=== PATIENT | female | born 1980 | race Caucasian/White ===

== ENCOUNTER → 2020-07-21 14:15 | Outpatient (CLI) | payer OTHER, SELFPAY ==
[2020-07-21 15:16] LABS: COVID19 -Nasal RAPID Negative (Negative)
== END ==
PROVIDERS: Visit Provider Nurse Practitioner Family
DX: Z20.822 Contact with and (suspected) exposure to COVID-19 (principal)
CPT/HCPCS: 87635; C9803

== ENCOUNTER 2023-07-22 12:50 | Day surgery (SDC) | payer OTHER, SELFPAY ==
--- NOTE | 2023-07-22 | PATH_ITS ---
[facility] Accession Number: [id number] No. of containers..02 Tissue . 01 Material submitted: . PART A: colon - ASCENDING POLYP PART B: colon - SIGMOID POLYP . 01 Diagnosis: A. Ascending Colon Polyp, Biopsy: Tubular adenoma. . B. Sigmoid Colon Polyp, Biopsy: Tubular adenoma. MRV 07/24/2023 1705 Local . 01 Electronically signed: . Wanda Roe MD, Pathologist NPI- [id number] . 01 Gross description: . Part A: ASCENDING POLYP: Received in formalin is 1 fragment(s) of alberto, soft tissue measuring 0.3 x 0.3 x 0.2 cm submitted entirely in 1 cassette(s) Part B: SIGMOID POLYP: Received in formalin is 1 fragment(s) of alberto, soft tissue measuring 0.3 x 0.3 x 0.2 cm submitted entirely in 1 cassette(s) /JAYLEEN 07/23/20232026 Local . 01 Pathologist provided ICD-10: D12.2, D12.5 . 01 CPT . 155017, 414838 Specimen Comment: A courtesy copy of this report has been sent to [phone] Performed at: 01 [facility] [address] [place] [address] [address], [place], [place] [id number] MD Donavan Dexter MD Phone: [phone]
[2023-07-22] MEDS: LACTATED RINGERS 1,000 ML 100 ML IV (13:36)
[2023-07-22 13:37] VITALS: BP 118/74; PULSE 79; RESP 16; TEMP 36.4; O2SAT 100
--- NOTE | 2023-07-22 13:51 | PM.HP.1 ---
History of Present Illness History of Present Illness Date Patient Seen: 07/22/23 Time Patient Seen: 13:51 Chief complaint: Screening Colonoscopy Narrative: 43-year-old woman here for screening colonoscopy. Mother has a history of breast cancer and patient has a positive CHEK2 gene mutation. No particular abdominal concerns today. [facility] Social History Smoking Status: Never smoker alcohol intake: never Meds Home Medications and Allergies Home Medications Medication Instructions Recorded Confirmed Type bupropion HCl 100 mg tablet 100 mg PO BID 07/22/23 07/22/23 History cetirizine 10 mg tablet 10 mg PO DAILY 07/22/23 07/22/23 History montelukast 10 mg tablet 10 mg PO DAILY 07/22/23 07/22/23 History sertraline 100 mg tablet 100 mg PO DAILY 07/22/23 07/22/23 History Allergies Allergy/AdvReac Type Severity Reaction Status Date / Time NSAIDS (Non-Steroidal AdvReac Verified 07/22/23 13:32 Anti-Inflamma Exam Vital Signs (past 8 hours): - 07/22/23 13:37 Temperature 97.5 F L Pulse Rate 79 Respiratory Rate 16 Blood Pressure 118/74 Pulse Oximetry 100 Oxygen Delivery Method Room Air Oxygen Delivery Method Room Air Narrative Exam Narrative: General adult woman alert oriented no acute distress Chest nonlabored respiration Extremities warm well perfused Assessment & Plan Assessment & Plan narrative: The patient requires colorectal screening and colonoscopy is recommended. Technical details were discussed. Risks, benefits, alternatives explained. Risks including but not limited to myocardial infarction, aspiration, bleeding, pain, missed lesion, incomplete examination, need for further radiographic studies, colonic perforation, and need for major abdominal surgery were discussed. All questions were answered to their satisfaction, and they are in agreement with this plan.
[2023-07-22 14:20] VITALS: BP 96/58; PULSE 85; RESP 20; TEMP 37; O2SAT 98
[2023-07-22 14:25] VITALS: BP 100/61; PULSE 83; O2SAT 99
--- NOTE | 2023-07-22 14:25 | P.OP.COLON_ITS ---
Operative Date/Time/Diagnoses Date of procedure: 07/22/23 Time of procedure: 14:26 Pre-op diagnosis: CHEK2 gene mutation Procedure & Clinicians Study performed: Colonoscopy and polypectomy Same procedure as scheduled: Yes Indications: Colorectal screening CHEK2 gene mutation Surgeon: Thomas Chavez Procedure Notes Procedure in detail: The history and physical was performed/updated and the patient is ASA class is 3. The procedure was discussed in detail with the patient. Potential risks complications including infection, bleeding, missed diagnosis, perforation, need for surgery, and were explained. Their questions were answered and informed consent was obtained. Patient was brought to the procedure room and placed standard monitoring equipment. The patient's vital signs were monitored continuously throughout the entire procedure. Prior to starting time-out was performed. The patient was placed in the left lateral recumbent position. Procedural sedation was administered by anesthesia. Examination began with a thorough inspection of the perianal area there was no evidence of fissures, fistulae, external hemorrhoids or cutaneous malignancy. The colonoscopy scope was then placed into the anal canal and was advanced to the cecum, which was identified by the ileocecal valve, the appendiceal orifice and the confluence of the taenia. The scope was then slowly withdrawn examining colon thoroughly in all directions, irrigating it of any residual stool. The scope was retroflexed within the rectum The patient tolerated the procedure well. They will be discharged once criteria are met. The prep was of fair quality. The withdrawl time was 8 minutes. FINDINGS * Ascending colon 3 mm polyp removed with biopsy forceps * Sigmoid 3 mm polyp removed with biopsy forceps Specimen(s): other (Ascending and sigmoid colonic polyps) Impression: Colonic polyps x2 Post-procedure Plan for aftercare: Follow up is dependent on pathology findings Disposition: same day surgery
[2023-07-22 14:30] VITALS: BP 104/63; PULSE 82; RESP 16; O2SAT 100
[2023-07-22 14:37] VITALS: BP 112/72; PULSE 92; RESP 15; TEMP 37; O2SAT 100
[2023-07-22 14:39] VITALS: BP 113/72; PULSE 86; RESP 15; O2SAT 99
== END 2023-07-22 14:51 | disposition home or self-care (01) ==
PROVIDERS: PCP Nurse Practitioner Family; Referring Provider Surgery; Visit Provider Surgery
PROC: 0DJD8ZZ Inspection of Lower Intestinal Tract, Via Natural or Artificial Opening Endoscopic (ICD-10-PCS; CPT 45378; principal; 2023-07-22 14:15)
DX: Z12.11 Encounter for screening for malignant neoplasm of colon (principal); Z15.09 Genetic susceptibility to other malignant neoplasm; D12.2 Benign neoplasm of ascending colon; D12.5 Benign neoplasm of sigmoid colon
CPT/HCPCS: 45380; J2250; J2704

== ENCOUNTER → 2024-02-12 09:05 | Outpatient (CLI) | payer OTHER, SELFPAY ==
--- NOTE | 2024-02-12 09:06 | DI.MG.S_ITS ---
BILATERAL DIGITAL DIAGNOSTIC MAMMOGRAM 3D/2D: 02/12/2024 CLINICAL: Right breast lump. Comparison is made to exams dated: 08/20/2021 mammogram - [facility], 05/06/2023 mammogram, and 04/11/2022 mammogram - out side. Both breasts are almost entirely fatty (category a/<25% glandular tissue). There is a low density asymmetry with an indistinct margin in the right breast at 6 o'clock anterior depth. This is seen in additional views. There is a trace amount of air and skin thickening associated with the asymmetry. This correlates as palpated and to the area of reported pain. No other significant masses, calcifications, or other findings are seen in either breast. Mammograms are otherwise stable. IMPRESSION: INCOMPLETE: NEEDS ADDITIONAL IMAGING EVALUATION The low density asymmetry in the right breast most likely is a skin lesion but remains indeterminate. An ultrasound is recommended. This was performed immediately following this exam. Bilateral mammograms are otherwise stable. Based on the Tyrer Cuzick model (a risk assessment model) the patient's lifetime risk is 14.7% and her 10 year risk is 2.4%. According to the ACR, ACS, and NCCN guidelines, an annual breast MRI exam along with mammogram is recommended if the patient's lifetime risk is 20% or greater. This exam was interpreted at Station ID: [id number]. NOTE: For mammograms, a report in lay terms will be sent to the patient. Approximately 15% of breast malignancies will not be visualized mammographically. In the management of a palpable breast mass, a negative mammogram must not discourage biopsy of a clinically suspicious lesion. Electronically Signed By: Nahomi islas/:02/12/2024 10:13:01 ACR BI-RADS Category 0: Incomplete [id number]
--- NOTE | 2024-02-12 09:06 | DI.US.S_ITS ---
LIMITED ULTRASOUND OF RIGHT BREAST AND AXILLA: 02/12/2024 CLINICAL: RT BREAST SUPERFICIAL MASS 06:00 4.5CMFN. Comparison is made to exams dated: 02/12/2024 mammogram - [facility], 05/06/2023 mammogram, 04/11/2022 mammogram, 04/11/2022 ultrasound - out side, 08/20/2021 mammogram, and 03/20/2017 mammogram - [facility]. Color flow and real-time ultrasound of the right breast 6 o'clock, and axilla regions were performed. Lawson scale images of the real-time examination were reviewed. There is a 2.3 cm x 2.1 cm x 0.7 cm oval fluid collection within the skin of the right breast at 6 o'clock 5 cm from the nipple. This oval fluid collection is hypoechoic with anti-dependent hyperechoic punctate foci. There is associated skin thickening and a tract to the skin surface. Color flow imaging demonstrates that there is increased vascularity. This correlates as palpated and with mammography findings. IMPRESSION: BENIGN There is no sonographic evidence of malignancy. The 2.3 cm intradermal fluid collection containing air on the right breast is consistent with an infected sebaceous cyst, phlegmon, or granuloma and is benign. Clinical follow up is recommended for symptoms as needed. Return to annual mammogram screening schedule is recommended. Findings and recommendations were conveyed to the patient at time of exam. This exam was interpreted at Station ID: [id number]. Electronically Signed By: Nahomi islas/:02/12/2024 12:06:23 letter sent: Normal Exam Ultrasound BI-RADS: 2 Benign
== END ==
LOC: MAMMO 09:05
PROVIDERS: PCP Nurse Practitioner Family; Referring Provider Nurse Practitioner Family; Visit Provider Nurse Practitioner Family
DX: R92.8 Other abnormal and inconclusive findings on diagnostic imaging of breast (principal); N63.15 Unspecified lump in the right breast, overlapping quadrants; R92.343 Mammographic extreme density, bilateral breasts
CPT/HCPCS: 76642; 77066; G0279

== ENCOUNTER → 2024-04-14 07:06 | Outpatient (CLI) | payer OTHER, SELFPAY ==
--- NOTE | 2024-04-14 | DI.US.S_ITS ---
PROCEDURE: US ABDOMEN LIMITED INDICATIONS: RIGHT UPPER QUADRANT AND EPIGASTRIC PAIN TECHNIQUE: Real-time scanning was performed of the abdominal and retroperitoneal organs, with image documentation. COMPARISON: None. FINDINGS: Liver: Liver is enlarged measuring 22.4 centimeters and increased in echogenicity. Gallbladder: Gallbladder sludge versus small dependent stones. No wall thickening. No pericholecystic edema. Negative sonographic Kearney's sign. Biliary ducts: Intrahepatic bile ducts are non-dilated. Extrahepatic bile duct is not well seen Pancreas: Visualized portions of the pancreas are sonographically normal. Body and tail are not well seen. Miscellaneous: No free abdominal fluid. IMPRESSION: 1. Hepatomegaly and hepatic steatosis. 2. Gallbladder sludge versus small dependent stones without sonographic evidence of acute cholecystitis. Dictated by: Isaiah Ridley M.D. on 04/14/2024 at 10:17 Approved by: Isaiah Ridley M.D. on 04/14/2024 at 10:18
== END ==
LOC: US 07:06
DX: R10.13 Epigastric pain (principal); R16.0 Hepatomegaly, not elsewhere classified; K76.0 Fatty (change of) liver, not elsewhere classified
CPT/HCPCS: 76705

== ENCOUNTER 2024-05-04 06:43 | Day surgery (SDC) | payer OTHER, SELFPAY ==
[2024-05-04 07:18] VITALS: BP 112/73; PULSE 73; RESP 18; TEMP 36.2; O2SAT 100
--- NOTE | 2024-05-04 07:39 | PM.PREOP ---
Pre-operative Note Interval Note History & Physical reviewed/Exam performed by Physician: Yes Changes to H&P: No
[2024-05-04 08:08] VITALS: BP 104/36; PULSE 111; RESP 24; TEMP 36.3; O2SAT 96
--- NOTE | 2024-05-04 08:09 | PM.OP.EGD ---
Operative Date/Time/Diagnoses Date of procedure: 05/04/24 Time of procedure: 08:09 Pre-op diagnosis: Abdominal pain Procedure & Clinicians Study performed: Esophagogastroduodenoscopy Same procedure as scheduled: Yes Indications: Unexplained abdominal pain Surgeon: Thomas Chavez Procedure Notes Procedure in detail: The history and physical was performed/updated and the patient is ASA class is 3. The procedure was discussed in detail with the patient. Potential risks complications including infection, bleeding, missed diagnosis, perforation, need for surgery, and were explained. Their questions were answered and informed consent was obtained. Patient placed in left lateral decubitus position. Time out was performed. Procedural sedation was administered by Anesthesia. A bite block was placed. the scope was inserted into the mouth and advanced through the esophagus and into the stomach. Stomach demonstrated normal Reggie-en-Y gastric bypass. The stomach was decompressed and scope was withdrawn slowly through the esophagus. FINDINGS Status post Reggie-en-Y gastric bypass. No ulceration or gastritis. The patient tolerated the procedure well and will be discharged when they meet criteria. Specimen(s): none sent Impression: Normal gastric bypass Post-procedure Plan for aftercare: Continue omeprazole as written Disposition: same day surgery
[2024-05-04 08:12] VITALS: BP 99/46; PULSE 98; RESP 20; O2SAT 96
[2024-05-04 08:19] VITALS: BP 96/53; PULSE 103; RESP 16; TEMP 36.4; O2SAT 95
--- NOTE | 2024-05-04 08:34 | SUR.PHASEII ---
Continuous pulse ox in place. Occasional cough noted. Intermittent wheeze/rhonchi heard. O2 sat 99% on RA. HR 80-90s but increased to 103 with reposition.
[2024-05-04] MEDS: ALBUTEROL 2.5 MG/3 ML NEB (ADULT) INH (08:52)
--- NOTE | 2024-05-04 08:55 | SUR.PHASEII ---
SURGICAL CONSULTANT Omer updated regarding patient status. Wheezes in bilateral lungs. Denied shortness of breath but felt wheezy. VVO for albuterol neb, which was ordered and started. Patient tolerating medication without difficulty.
== END 2024-05-04 09:05 | disposition home or self-care (01) ==
PROVIDERS: Referring Provider Surgery; Visit Provider Surgery
PROC: 0DJ08ZZ Inspection of Upper Intestinal Tract, Via Natural or Artificial Opening Endoscopic (ICD-10-PCS; CPT 43235; principal; 2024-05-04 07:45)
DX: R10.9 Unspecified abdominal pain (principal); Z98.84 Bariatric surgery status
CPT/HCPCS: 43235; J2704; J7613